=== PATIENT | female | born 1955 | race Caucasian/White ===

== ENCOUNTER 2021-05-02 16:41 | Emergency (ER) | payer MEDICARE ==
--- NOTE | 2021-05-02 17:01 | ERPHSYRPT ---
- History of Present Illness Time Seen by Provider: 05/02/21 16:45 Source: patient Exam Limitations: no limitations Patient Subjective Stated Complaint: PT states "For the past three days I have had a low grade fever in the upper 99s and weak with a slight cough." Triage Nursing Assessment: Pt presented alert and oriented X 3, skin wpd Pt ambulates with an upright steady gait, able to speak in clear full sentences pt in no apaprent respiratory distress. Physician History: 65 years old female with multiple medical problems presented in the ER with chief complaint of generalized weakness fatigue and tiredness for the last 3 days. She reports having nasal/sinus congestion with gradually having sore throat and now having productive cough of yellow-green sputum. No abdominal pain nausea vomiting or diarrhea reported. Unvaccinated against COVID-19. Denies any difficulty breathing. No chest pain or palpitations. Timing/Duration: day(s) (3), gradual onset, worse Cough Quality/Degree: moderate, productive cough, sputum Possible Cause: unknown cause Modifying Factors: Worsens With: coughing Associated Symptoms: chills, cough, dizziness, muscle aches, nasal congestion, nasal drainage, sinus infection, sore throat, wheezing, No shortness of breath Allergies/Adverse Reactions: No Known Drug Allergies Allergy (Unverified 09/23/20 19:41) Home Medications: Atorvastatin Calcium [Lipitor] 40 mg PO DAILY 05/02/21 [History] Furosemide 40 mg [Lasix 40 MG] 40 mg PO DAILY 05/02/21 [History] Glimepiride [Amaryl] 4 mg PO DAILY 05/02/21 [History] Isosorbide Mononitrate 60 mg [Imdur 60MG] 60 mg PO DAILY 05/02/21 [History] Levothyroxine Sodium [Euthyrox] 175 mcg PO DAILY 05/02/21 [History] Ropinirole HCl [Ropinirole ER] 4 mg PO DAILY 05/02/21 [History] Trazodone HCl 150 mg PO DAILY 05/02/21 [History] lisinopriL [Zestril] 30 mg PO DAILY 05/02/21 [History] Hx Tetanus, Diphtheria Vaccination/Date Given: Yes Hx Influenza Vaccination/Date Given: No Hx Pneumococcal Vaccination/Date Given: Yes Immunizations Up to Date: Yes Travel Risk - International Travel Have you traveled outside of the country in past 3 weeks: No - Coronavirus Screening Symptoms: Cough: New Onset Close contact with a COVID-19 positive Pt in past 14-21 Days: No - Vaccine Status Have you recieved a Covid-19 vaccination: No - Review of Systems Constitutional: Fatigue, Weakness Eyes: No Symptoms Ears, Nose, & Throat: No Symptoms Respiratory: Cough Cardiac: No Symptoms Abdominal/Gastrointestinal: No Symptoms Genitourinary Symptoms: No Symptoms Musculoskeletal: Myalgias Skin: No Symptoms Neurological: No Symptoms Psychological: No Symptoms Endocrine: No Symptoms Hematologic/Lymphatic: No Symptoms Immunological/Allergic: No Symptoms - Past Medical History Pertinent Past Medical History: Yes Neurological History: No Pertinent History ENT History: Cataracts Cardiac History: High Cholesterol, Hypertension Respiratory History: COPD Endocrine Medical History: Diabetes Type II, Hypothyroidism Musculoskeletal History: Arthritis GI Medical History: GERD, Hernia History: Renal Disease, Other Psycho-Social History: Depression Female Reproductive Disorders: No Pertinent History Other Medical History: kidney stones, stage III kidney disease - Past Surgical History Past Surgical History: Yes Neuro Surgical History: No Pertinent History Cardiac: Cardiac Catheterization Respiratory: No Pertinent History Gastrointestinal: No Pertinent History Genitourinary: No Pertinent History Musculoskeletal: No Pertinent History Female Surgical History: Hysterectomy - Social History Smoking Status: Former smoker Exposure to second hand smoke: No Drug Use: none Patient Lives Alone: No - Nursing Vital Signs Nursing Vital Signs: Initial Vital Signs Temperature 98.5 F 05/02/21 16:51 Pulse Rate 74 05/02/21 16:51 Respiratory Rate 20 05/02/21 16:51 Blood Pressure 134/73 05/02/21 16:51 O2 Sat by Pulse Oximetry 96 05/02/21 16:51 Pain Scale Pain Intensity 0 - Physical Exam General Appearance: no apparent distress, alert Eye Exam: PERRL/EOMI Ears, Nose, Throat Exam: moist mucous membranes, pharyngeal erythema Neck Exam: normal inspection, supple, full range of motion Respiratory Exam: wheezing Cardiovascular Exam: regular rate/rhythm, normal heart sounds Gastrointestinal/Abdomen Exam: soft, normal bowel sounds Back Exam: normal inspection, normal range of motion Extremity Exam: normal inspection, normal range of motion, pelvis stable Neurologic Exam: alert, oriented x 3, cooperative Skin Exam: normal color SpO2 Interpretation: normal SpO2: 96 O2 Delivery: Room Air Ordered Tests: Active Orders 24 hr Category Date Time Status Telephone Messenger STAT Care 05/02/21 16:57 Active EKG-ER Only STAT Care 05/02/21 16:56 Active IV Insertion STAT Care 05/02/21 16:56 Active CHEST 1 VIEW (PORTABLE) Stat Exams 05/02/21 17:06 Taken BLOOD CULTURE Stat Lab 05/02/21 17:30 Received CBC W DIFF Stat Lab 05/02/21 17:35 Completed CMP Stat Lab 05/02/21 17:35 Completed Lactic Acid Stat Lab 05/02/21 17:18 Completed MAGNESIUM Stat Lab 05/02/21 17:35 Completed NT PRO BNP Stat Lab 05/02/21 17:35 Completed TROPONIN Q3H Lab 05/02/21 17:35 Completed TROPONIN Q3H Lab 05/02/21 20:00 Ordered TROPONIN Q3H Lab 05/02/21 23:00 Ordered TROPONIN Q3H Lab 05/03/21 02:00 Ordered TROPONIN Q3H Lab 05/03/21 05:00 Ordered UA W/RFX UR CULTURE Stat Lab 05/02/21 17:35 Completed Medication Summary Discontinued Medications Generic Name Dose Route Start Last Admin Trade Name Freq PRN Reason Stop Dose Admin Albuterol/Ipratropium 3 ml 05/02/21 19:10 Ipratropium/Albuterol Sulfate 3 Ml Ampul.Neb IH 05/02/21 19:11 STAT ONE Doxycycline Hyclate 100 mg 05/02/21 19:09 Doxycycline Hyclate 100 Mg Tablet PO 05/02/21 19:10 STAT ONE Lab/Rad Data: Laboratory Result Diagrams 05/02/21 17:35 05/02/21 17:35 Laboratory Results 05/02/21 05/02/21 05/02/21 Range/Units 17:35 17:35 17:35 WBC (4.0-10.5) K/mm3 RBC (4.1-5.4) M/mm3 Hgb (12.0-16.0) gm/dl Hct (35-47) % MCV (78-100) fl MCH (26-32) pg MCHC (32-36) g/dl RDW (11.5-14.0) % Plt Count (150-450) K/mm3 MPV (7.5-11.0) fl Gran % (36.0-66.0) % Eos # (Auto) (0-0.5) Absolute Lymphs (auto) (1.0-4.6) Absolute Monos (auto) (0.0-1.3) Lymphocytes % (24.0-44.0) % Monocytes % (0.0-12.0) % Eosinophils % (0.00-5.0) % Basophils % (0.0-0.4) % Absolute Granulocytes (1.4-6.9) Basophils # (0-0.4) Sodium 139 (137-145) mmol/L Potassium 4.0 (3.5-5.1) mmol/L Chloride 103 (98-107) mmol/L Carbon Dioxide 28 (22-30) mmol/L Anion Gap 13.0 (5-15) MEQ/L BUN 21 H (7-17) mg/dL Creatinine 1.39 H (0.52-1.04) mg/dL Estimated GFR 40.2 ML/MIN Glucose 176 H (74-106) mg/dL Lactic Acid (0.4-2.0) Calcium 9.2 (8.4-10.2) mg/dL Magnesium 1.9 (1.6-2.3) mg/dL Total Bilirubin 0.50 (0.2-1.3) mg/dL AST 23 (14-36) U/L ALT 22 (0-35) U/L Alkaline Phosphatase 108 (38-126) U/L Troponin I < 0.012 (0.000-0.034) ng/mL NT-Pro-B Natriuret Pep 475 (0-900) pg/mL Serum Total Protein 6.6 (6.3-8.2) g/dL Albumin 3.7 (3.5-5.0) g/dL Urine Color YELLOW (YELLOW) Urine Appearance CLEAR (CLEAR) Urine pH 5.0 (5-6) Ur Specific [place] 1.010 (1.005-1.025) Urine Protein NEGATIVE (Negative) Urine Ketones NEGATIVE (NEGATIVE) Urine Blood NEGATIVE (0-5) Ang/ul Urine Nitrite NEGATIVE (NEGATIVE) Urine Bilirubin NEGATIVE (NEGATIVE) Urine Urobilinogen NEGATIVE (0-1) mg/dL Ur Leukocyte Esterase NEGATIVE (NEGATIVE) Urine WBC (Auto) NONE (0-5) /HPF Urine RBC (Auto) NONE (0-2) /HPF U Hyaline Cast (Auto) 3-5 (0-2) /LPF U Epithel Cells (Auto) NONE (FEW) /HPF Urine Bacteria (Auto) NONE (NEGATIVE) /HPF Urine Mucus (Auto) SLIGHT (NEGATIVE) /HPF Urine Culture Reflexed NO (NO) Urine Glucose NEGATIVE (NEGATIVE) mg/dL 05/02/21 05/02/21 Range/Units 17:35 17:18 WBC 8.3 (4.0-10.5) K/mm3 RBC 4.32 (4.1-5.4) M/mm3 Hgb 12.3 (12.0-16.0) gm/dl Hct 38.1 (35-47) % MCV 88.2 (78-100) fl MCH 28.5 (26-32) pg MCHC 32.3 (32-36) g/dl RDW 13.4 (11.5-14.0) % Plt Count 261 (150-450) K/mm3 MPV 9.8 (7.5-11.0) fl Gran % 47.9 (36.0-66.0) % Eos # (Auto) 0.54 H (0-0.5) Absolute Lymphs (auto) 3.02 (1.0-4.6) Absolute Monos (auto) 0.73 (0.0-1.3) Lymphocytes % 36.4 (24.0-44.0) % Monocytes % 8.8 (0.0-12.0) % Eosinophils % 6.5 H (0.00-5.0) % Basophils % 0.4 (0.0-0.4) % Absolute Granulocytes 3.98 (1.4-6.9) Basophils # 0.03 (0-0.4) Sodium (137-145) mmol/L Potassium (3.5-5.1) mmol/L Chloride (98-107) mmol/L Carbon Dioxide (22-30) mmol/L Anion Gap (5-15) MEQ/L BUN (7-17) mg/dL Creatinine (0.52-1.04) mg/dL Estimated GFR ML/MIN Glucose (74-106) mg/dL Lactic Acid 1.3 (0.4-2.0) Calcium (8.4-10.2) mg/dL Magnesium (1.6-2.3) mg/dL Total Bilirubin (0.2-1.3) mg/dL AST (14-36) U/L ALT (0-35) U/L Alkaline Phosphatase (38-126) U/L Troponin I (0.000-0.034) ng/mL NT-Pro-B Natriuret Pep (0-900) pg/mL Serum Total Protein (6.3-8.2) g/dL Albumin (3.5-5.0) g/dL Urine Color (YELLOW) Urine Appearance (CLEAR) Urine pH (5-6) Ur Specific [place] (1.005-1.025) Urine Protein (Negative) Urine Ketones (NEGATIVE) Urine Blood (0-5) Ang/ul Urine Nitrite (NEGATIVE) Urine Bilirubin (NEGATIVE) Urine Urobilinogen (0-1) mg/dL Ur Leukocyte Esterase (NEGATIVE) Urine WBC (Auto) (0-5) /HPF Urine RBC (Auto) (0-2) /HPF U Hyaline Cast (Auto) (0-2) /LPF U Epithel Cells (Auto) (FEW) /HPF Urine Bacteria (Auto) (NEGATIVE) /HPF Urine Mucus (Auto) (NEGATIVE) /HPF Urine Culture Reflexed (NO) Urine Glucose (NEGATIVE) mg/dL - Progress Progress: improved Air Movement: good Progress Note: 05/02/21 19:15 65-year-old is evaluated for generalized weakness fatigue and tiredness and flulike symptoms. Wrist x-ray showed questionable infiltrative process. She is maintaining oxygen saturation at room air around 97%. Not in any distress. Given breathing treatment and lab work grossly unremarkable. Will obtain outpatient Covid test as well. She is started on doxycycline. Do not think she needs to be admitted and is stable for discharge with outpatient follow-up. Discussed signs symptoms of worsening needing return to ER which she seems understanding. 05/02/21 19:32 Blood Culture(s) Obtained: No Antibiotics given: Yes Counseled pt/family regarding: lab results, diagnosis, need for follow-up, rad results - Departure Departure Disposition: Home Clinical Impression: General weakness, URI with cough and congestion Condition: Stable Critical Care Time: No Referrals: JOYCE LARSEN [Primary Care Provider] - Follow up/PCP as directed (In 2 days evaluation) Instructions: Generalized Weakness (DC), Acute Bronchitis, Adult (DC) Additional Instructions: Keep yourself well-hydrated. Take Tylenol as needed. Use inhaler as needed. Follow-up with primary care for reevaluation. Return to ER for worsening generalized weakness fatigue, cough, fever chills etc. Prescriptions: Albuterol 8 gm Mdi Hfa [Ventolin Hfa MDI] 8 gm IH Q4H #1 inh Doxycycline Hyclate 100 mg [Vibramycin 100 MG] 100 mg PO BID #14 tab
[2021-05-02 17:39] LABS: Absolute Neutrophil Ct (ANC) 3.98 (1.4-6.9); BASOPHIL % 0.4 % (0.0-0.4); Basophil (Absolute #) 0.03 (0-0.4); Eosinophil % 6.5 % (0.00-5.0); Eosinophil (Absolute #) 0.54 (0-0.5); Hematocrit 38.1 % (35-47); Hemoglobin 12.3 gm/dl (12.0-16.0); Lymphocyte (Absolute #) 3.02 (1.0-4.6); Lymphocytes % 36.4 % (24.0-44.0); Mean Cell Volume 88.2 fl (78-100); Mean Corpuscular Hemoglobin 28.5 pg (26-32); Mean Corpuscular Hgb Concent. 32.3 g/dl (32-36); Mean Platelet Volume 9.8 fl (7.5-11.0); Monocyte (Absolute #) 0.73 (0.0-1.3); Monocytes % 8.8 % (0.0-12.0); Neutrophil % 47.9 % (36.0-66.0); Platelet Count 261 K/mm3 (150-450); Red Blood Count 4.32 M/mm3 (4.1-5.4); Red Cell Distribution Width 13.4 % (11.5-14.0); White Blood Count 8.3 K/mm3 (4.0-10.5)
[2021-05-02 17:48] LABS: Appearance CLEAR (CLEAR); Bilirubin NEGATIVE (NEGATIVE); Blood NEGATIVE Ery/ul (0-5); Glucose NEGATIVE (NEGATIVE); Ketones NEGATIVE (NEGATIVE); Leukocyte Esterase NEGATIVE (NEGATIVE); Mucus SLIGHT /HPF (NEGATIVE); Nitrite NEGATIVE (NEGATIVE); Protein,Urine Dip NEGATIVE (Negative); Urobilinogen NEGATIVE mg/dL (0-1)
[2021-05-02 18:02] LABS: ALBUMIN 3.7 g/dL (3.5-5.0); BILIRUBIN,TOTAL 0.5 mg/dL (0.2-1.3); Calcium 9.2 mg/dL (8.4-10.2); Creatinine 1 1.39 mg/dL (0.52-1.04); EST GLOMERULAR FILTRATION RATE 40.2 ML/MIN; MAGNESIUM 1.9 mg/dL (1.6-2.3); Total Protein 6.6 g/dL (6.3-8.2)
[2021-05-02] MEDS ORDERED: Vibramycin 100 MG PO ONE (19:09)
[2021-05-02] MEDS ORDERED: DUONEB 0.5-3 MG/3 ml Neb IH ONE ×2 (19:10→20:03)
[2021-05-02] MEDS ORDERED: Vibramycin 100 MG ONE (20:10)
[2021-05-02 20:18] VITALS: BP 127/67; PULSE 63; O2SAT 97
--- NOTE | 2021-05-02 22:58 | XRAY ---
Indication: Fever and cough. Suspect Covid 19. Comparison: None Portable chest demonstrates subtle bibasilar infiltrates versus atelectasis. Remaining heart and lungs unremarkable. Bony thorax intact with mild osteopenia and degenerative changes.
== END 2021-05-02 20:16 | disposition home or self-care (01) ==
LOC: ED 16:41
DX: J06.9 Acute upper respiratory infection, unspecified (principal); R53.1 Weakness; R05.9 Cough, unspecified; R09.81 Nasal congestion; J02.9 Acute pharyngitis, unspecified; E78.5 Hyperlipidemia, unspecified; I12.9 Hypertensive chronic kidney disease with stage 1 through stage 4 chronic kidney disease, or unspecified chronic kidney disease; E11.22 Type 2 diabetes mellitus with diabetic chronic kidney disease; N18.30 Chronic kidney disease, stage 3 unspecified
CPT/HCPCS: 36000; 36415; 71045; 80053; 81001; 83605; 83735; 83880; 84484; 85025; 87040; 93005; 93041; 99284; U0003; A9270-GY

== ENCOUNTER 2021-05-30 14:50 | Emergency (ER) | payer MEDICARE ==
[2021-05-30 15:36] LABS: Hematocrit 39.3 % (35-47); Hemoglobin 12.8 gm/dl (12.0-16.0); Mean Cell Volume 87.9 fl (78-100); Mean Corpuscular Hemoglobin 28.6 pg (26-32); Mean Corpuscular Hgb Concent. 32.6 g/dl (32-36); Platelet Count 280 K/mm3 (150-450); Red Blood Count 4.47 M/mm3 (4.1-5.4); Red Cell Distribution Width 13.8 % (11.5-14.0); White Blood Count 13.4 K/mm3 (4.0-10.5)
[2021-05-30 15:37] LABS: Appearance CLEAR (CLEAR); Bilirubin NEGATIVE (NEGATIVE); Blood SMALL Ery/ul (0-5); Glucose NEGATIVE (NEGATIVE); Ketones NEGATIVE (NEGATIVE); Leukocyte Esterase NEGATIVE (NEGATIVE); Mucus SLIGHT /HPF (NEGATIVE); Nitrite NEGATIVE (NEGATIVE); Protein,Urine Dip 100 (Negative); RBC 26-50 /HPF (0-2); Specific Gravity 1.015 (1.005-1.025); Urobilinogen 2 mg/dL (0-1)
[2021-05-30 15:39] LABS: ALBUMIN 3.9 g/dL (3.5-5.0); BILIRUBIN,TOTAL 0.8 mg/dL (0.2-1.3); Calcium 9.7 mg/dL (8.4-10.2); Creatinine 1 1.81 mg/dL (0.52-1.04); EST GLOMERULAR FILTRATION RATE 29.6 ML/MIN
[2021-05-30] MEDS ORDERED: Zofran 4 MG/2 ML VIAL IV ONE (15:53)
[2021-05-30] MEDS ORDERED: Sodium Chloride 0.9% 500 ML 500 ML IV ONE ×2 (15:53→16:16)
[2021-05-30] MEDS ORDERED: MORPHINE SULFATE 4 MG INJ IV ONE (15:53)
[2021-05-30] MEDS ORDERED: MORPHINE SULFATE 4 MG INJ ONE (16:15)
[2021-05-30] MEDS ORDERED: Zofran 4 MG/2 ML VIAL ONE (16:15)
[2021-05-30 16:21] LABS: Eosinophil 3 % (0.00-3.0); Lymphocytes 24 % (24-44); Monocyte 7 % (0.0-12.0); Neutrophils 66 % (36.0-66.0); Total Cells Counted 100
[2021-05-30 16:22] LABS: ANISOCYTOSIS 1+; Platelet Estimate NORMAL (NORMAL); Poikilocytosis 1+; Polychromasia 1+
[2021-05-30] MEDS ORDERED: Flomax 0.4 MG PO STA (17:11)
[2021-05-30] MEDS ORDERED: Flomax 0.4 MG ONE (17:15)
[2021-05-30] MEDS ORDERED: ROCEPHIN 1 Gm-D5w 50 ml Bag** 1 G/50 ML IVPB IV STA (17:40)
--- NOTE | 2021-05-30 17:47 | ERPHSYRPT ---
- History of Present Illness Time Seen by Provider: 05/30/21 15:01 Historian: patient Exam Limitations: no limitations Patient Subjective Stated Complaint: pt reports approx 0900 pt starting having lower back and groin pain, pt reports dx of bronchitis 05/02/21 and states she has never gotten over it or quit coughing. pt is concerned she may have injured herself from coughing. pt denies any trauma or accident. Triage Nursing Assessment: pt is aox3, pupils perrl, afebrile, resps easy and non labored, cap refill < 3 seconds, radial pulses strong and equal, pt skin pink warm dry. skin is intact. pt sensation, ROM intact, ambulatory with slow [facility] joseph[facility] gait. Physician History: 65-year-old female presented to the ER with chief complaint of suprapubic/right groin area pain with some radiation to the back since morning, moderate intensity, sharp nature, aggravated with movement/ambulation without associated urinary symptoms. Denies any upper abdominal/flank pain. Denies any hematuria. Reports mild associated nausea but no vomiting. Has chronic cough bronchitis which she has been dealing for almost a month without any difficulty breathing. Patient thinks she might have coughed hard and pulled muscles in her back. No fever or chills reported. No history of kidney stones. Timing/Duration: today, constant, sudden, worse Activities at Onset: rest Quality: sharpness Abdominal Pain Onset Location: suprapubic Pain Radiation: groin Severity of Pain-Max: moderate Severity of Pain-Current: moderate Modifying Factors: Worsens With: movement, palpation Associated Symptoms: nausea Previous symptoms: no prior history Allergies/Adverse Reactions: No Known Drug Allergies Allergy (Verified 05/30/21 15:02) Home Medications: Atorvastatin Calcium [Lipitor] 40 mg PO DAILY 05/02/21 [History] Furosemide 40 mg [Lasix 40 MG] 40 mg PO DAILY 05/02/21 [History] Glimepiride [Amaryl] 4 mg PO DAILY 05/02/21 [History] Isosorbide Mononitrate 60 mg [Imdur 60MG] 60 mg PO DAILY 05/02/21 [History] Levothyroxine Sodium [Euthyrox] 175 mcg PO DAILY 05/02/21 [History] Ropinirole HCl [Ropinirole ER] 4 mg PO DAILY 05/02/21 [History] Trazodone HCl 150 mg PO DAILY 05/02/21 [History] lisinopriL [Zestril] 30 mg PO DAILY 05/02/21 [History] Hx Tetanus, Diphtheria Vaccination/Date Given: Yes Hx Influenza Vaccination/Date Given: Yes Hx Pneumococcal Vaccination/Date Given: Yes Immunizations Up to Date: Yes Travel Risk - International Travel Have you traveled outside of the country in past 3 weeks: No - Coronavirus Screening Are you exhibiting any of the following symptoms?: No Close contact with a COVID-19 positive Pt in past 14-21 Days: No - Vaccine Status Have you recieved a Covid-19 vaccination: No - Review of Systems Constitutional: No Symptoms Eyes: No Symptoms Ears, Nose, & Throat: No Symptoms Respiratory: No Symptoms Cardiac: No Symptoms Abdominal/Gastrointestinal: Abdominal Pain, Nausea Genitourinary Symptoms: No Symptoms Musculoskeletal: Back Pain Skin: No Symptoms Neurological: No Symptoms Psychological: No Symptoms Endocrine: No Symptoms Hematologic/Lymphatic: No Symptoms - Past Medical History Pertinent Past Medical History: Yes Neurological History: No Pertinent History ENT History: Cataracts Cardiac History: High Cholesterol, Hypertension Respiratory History: COPD Endocrine Medical History: Diabetes Type II, Hypothyroidism Musculoskeletal History: Arthritis GI Medical History: GERD, Hernia History: Renal Disease, Other Psycho-Social History: Depression Female Reproductive Disorders: No Pertinent History Other Medical History: kidney stones, stage III kidney disease - Past Surgical History Past Surgical History: Yes Neuro Surgical History: No Pertinent History Cardiac: Cardiac Catheterization Respiratory: No Pertinent History Gastrointestinal: No Pertinent History Genitourinary: No Pertinent History Musculoskeletal: No Pertinent History Female Surgical History: Hysterectomy - Social History Smoking Status: Former smoker Exposure to second hand smoke: No Drug Use: none Patient Lives Alone: No - Female History Hx Now: No - Nursing Vital Signs Nursing Vital Signs: Initial Vital Signs Temperature 97.5 F 05/30/21 14:54 Pulse Rate 77 05/30/21 14:54 Respiratory Rate 20 05/30/21 14:54 Blood Pressure 140/77 05/30/21 14:54 O2 Sat by Pulse Oximetry 97 05/30/21 14:54 Pain Scale Pain Intensity 7 - Physical Exam General Appearance: no apparent distress, alert Eye Exam: PERRL/EOMI Ears, Nose, Throat Exam: normal ENT inspection, pharynx normal Neck Exam: normal inspection, supple, full range of motion Respiratory Exam: normal breath sounds, lungs clear Cardiovascular Exam: regular rate/rhythm, normal heart sounds Gastrointestinal/Abdomen Exam: soft, normal bowel sounds, tenderness (Suprapubic area. No right lower quadrant tenderness.), No guarding Back Exam: normal inspection, normal range of motion, No CVA tenderness Extremity Exam: normal inspection, normal range of motion Neurologic Exam: alert, oriented x 3, cooperative Skin Exam: normal color SpO2 Interpretation: normal SpO2: 97 O2 Delivery: Room Air Ordered Tests: Active Orders 24 hr Category Date Time Status ABDOMEN AND PELVIS W/0 CONTRAS [CT] Stat Exams 05/30/21 16:09 Taken CBC W DIFF Stat Lab 05/30/21 15:20 Completed CMP Stat Lab 05/30/21 15:20 Completed LIPASE Stat Lab 05/30/21 15:20 Completed Manual Differential NC Stat Lab 05/30/21 15:20 Completed UA W/RFX UR CULTURE Stat Lab 05/30/21 15:23 Completed Medication Summary Discontinued Medications Generic Name Dose Route Start Last Admin Trade Name Harinder PRN Reason Stop Dose Admin Sodium Chloride 500 mls @ 500 mls/hr 05/30/21 15:53 05/30/21 16:18 Sodium Chloride 0.9% 500 Ml IV 05/30/21 16:52 500 mls/hr .Q1H ONE Administration Sodium Chloride Confirm 05/30/21 16:16 Sodium Chloride 0.9% 500 Ml Administered 05/30/21 16:17 Dose 500 mls @ ud IV .STK-MED ONE Morphine Sulfate 4 mg 05/30/21 15:53 05/30/21 16:20 Morphine Sulfate 4 Mg/Ml Injection IV 05/30/21 15:54 4 mg STAT ONE Administration Morphine Sulfate Confirm 05/30/21 16:15 Morphine Sulfate 4 Mg/Ml Injection Administered 05/30/21 16:16 Dose 4 mg .ROUTE .STK-MED ONE Ondansetron HCl 4 mg 05/30/21 15:53 05/30/21 16:20 Ondansetron Hcl 4 Mg/2 Ml Vial IV 05/30/21 15:54 4 mg STAT ONE Administration Ondansetron HCl Confirm 05/30/21 16:15 Ondansetron Hcl 4 Mg/2 Ml Vial Administered 05/30/21 16:16 Dose 4 mg .ROUTE .STK-MED ONE Tamsulosin HCl 0.4 mg 05/30/21 17:11 05/30/21 17:16 Tamsulosin Hcl 0.4 Mg Cap PO 05/30/21 17:12 0.4 mg ONCE STA Administration Tamsulosin HCl Confirm 05/30/21 17:15 Tamsulosin Hcl 0.4 Mg Cap Administered 05/30/21 17:16 Dose 0.4 mg .ROUTE .[facility] ONE Lab/Rad Data: Laboratory Result Diagrams 05/30/21 15:20 05/30/21 15:20 Laboratory Results 05/30/21 05/30/21 05/30/21 Range/Units 15:23 15:20 15:20 WBC 13.4 H (4.0-10.5) K/mm3 RBC 4.47 (4.1-5.4) M/mm3 Hgb 12.8 (12.0-16.0) gm/dl Hct 39.3 (35-47) % MCV 87.9 (78-100) fl MCH 28.6 (26-32) pg MCHC 32.6 (32-36) g/dl RDW 13.8 (11.5-14.0) % Plt Count 280 (150-450) K/mm3 MPV 10.0 (7.5-11.0) fl Segmented Neutrophils 66 (36.0-66.0) % Lymphocytes (Manual) 24 (24-44) % Monocytes (Manual) 7 (0.0-12.0) % Eosinophils (Manual) 3 (0.00-3.0) % Platelet Estimate NORMAL (NORMAL) RBC Morphology ABNORMAL Polychromasia 1+ Poikilocytosis 1+ Anisocytosis 1+ Sodium 138 (137-145) mmol/L Potassium 4.0 (3.5-5.1) mmol/L Chloride 100 (98-107) mmol/L Carbon Dioxide 27 (22-30) mmol/L Anion Gap 15.0 (5-15) MEQ/L BUN 28 H (7-17) mg/dL Creatinine 1.81 H (0.52-1.04) mg/dL Estimated GFR 29.6 ML/MIN Glucose 120 H (74-106) mg/dL Calcium 9.7 (8.4-10.2) mg/dL Total Bilirubin 0.80 (0.2-1.3) mg/dL AST 49 H (14-36) U/L ALT 42 H (0-35) U/L Alkaline Phosphatase 183 H (38-126) U/L Serum Total Protein 7.0 (6.3-8.2) g/dL Albumin 3.9 (3.5-5.0) g/dL Lipase 72 (23-300) U/L Urine Color YELLOW (YELLOW) Urine Appearance CLEAR (CLEAR) Urine pH 6.0 (5-6) Ur Specific [place] 1.015 (1.005-1.025) Urine Protein 100 (Negative) Urine Ketones NEGATIVE (NEGATIVE) Urine Blood SMALL (0-5) Ang/ul Urine Nitrite NEGATIVE (NEGATIVE) Urine Bilirubin NEGATIVE (NEGATIVE) Urine Urobilinogen 2 (0-1) mg/dL Ur Leukocyte Esterase NEGATIVE (NEGATIVE) Urine WBC (Auto) NONE (0-5) /HPF Urine RBC (Auto) 26-50 (0-2) /HPF U Epithel Cells (Auto) NONE (FEW) /HPF Urine Mucus (Auto) SLIGHT (NEGATIVE) /HPF Urine Culture Reflexed NO (NO) Urine Glucose NEGATIVE (NEGATIVE) mg/dL - Progress Progress: improved, re-examined Progress Note: 05/30/21 17:46 She is given fluid bolus along with symptomatic treatment for pain, on reevaluation her pain is almost completely resolved. She has a white count of 13, chemistry profile showed mild worsening of chronic kidney disease. No UTI. CT showed 3 mm right UVJ stone with hydroureteronephrosis. She is given Flomax. Size of stone is small enough to be passed on its own. I will continue with Flomax, pain medication and will give prophylactic antibiotics. Recommended outpatient urology follow-up. Discussed signs symptoms of worsening needing return to ER which she seems understanding. Counseled pt/family regarding: lab results, diagnosis, need for follow-up, rad results - Departure Departure Disposition: Home Clinical Impression: Ureterolithiasis Condition: Stable Critical Care Time: No Referrals: JOYCE LARSEN [Primary Care Provider] - Follow up/PCP as directed (In 2 days for reevaluation) KEISHA PORTILLO [COURTESY STAFF] - Follow up/PCP as directed (In 2 days for reev aluation) Instructions: Kidney Stones (DC) Additional Instructions: Take pain medications as needed. Drink plenty of fluids. Follow-up with urolog y for reevaluation. Return to ER for worsening pain, intractable vomiting or if develop fever chills etc. Prescriptions: Hydrocodone/Acetaminophen [Hydrocodone-Acetamin 5-325 mg] 1 tab PO Q6HPRN PRN 3 Days #12 tablet MDD 4 PRN Reason: Pain Tamsulosin HCl 0.4 mg [Flomax 0.4 MG] 0.4 mg PO DAILY #30 cap Cefpodoxime Proxetil 200 mg [Vantin 200 mg] 200 mg PO BID 7 Days #14 tablet
[2021-05-30] MEDS ORDERED: ROCEPHIN 1 Gm-D5w 50 ml Bag** 1 G/50 ML IVPB IV ONE (17:49)
[2021-05-30] MEDS ORDERED: NORCO 5/325 MG PO ONE (17:51)
[2021-05-30] MEDS ORDERED: NORCO 5/325 MG ONE (18:03)
[2021-05-30 18:08] VITALS: BP 131/72; PULSE 65; O2SAT 95
--- NOTE | 2021-05-30 19:00 | XRAY ---
Indication: Lower abdomen/pelvic pain. History stones. Multiple contiguous axial images obtained through the abdomen and pelvis without contrast using renal stone protocol. Comparison: September 23, 2020 Lung bases demonstrates minimal fibrosis/scarring. There is now partially visualized right perihilar opacity measure 1.4 x 2.0 cm better evaluated with CT chest exam. Heart not enlarged. New small hiatal hernia. Posterior urinary bladder demonstrates new 3-4 mm calculus adjacent to the right UVJ. Right ureter is slightly prominent along with mild hydronephrosis consistent with recent passage of said calculus. No calculus or evidence for objective rapidly on the left. Noncontrasted stomach and bowel loops appear nonobstructed. Appendix not seen. Minimal descending and sigmoid diverticulosis. There has been hysterectomy. No free fluid/air. Remaining liver, gallbladder, pancreas, spleen, adrenal glands, kidneys, ureters, and bladder are unremarkable for noncontrast exam. Mild scattered aortoiliac calcifications without AAA. Osseous structures intact with mild degenerative changes throughout the spine and both hips. Stable small fatty left inguinal hernia. Impression: 1. New 3-4 mm urinary bladder calculus adjacent to the right UVJ. Right hydronephrosis and hydroureter consistent with recent passage of said calculus. 2. New small hiatal hernia. 3. Partially visualized right perihilar opacity, possible adenopathy, better evaluated with CT chest exam. 4. Again colonic diverticulosis and chronic bony findings. Comment: Preliminary interpretation made by [facility] who does not report incidental right perihilar finding.
== END 2021-05-30 18:16 | disposition home or self-care (01) ==
LOC: ED 14:50
DX: N13.2 Hydronephrosis with renal and ureteral calculous obstruction (principal); Z87.442 Personal history of urinary calculi; R11.0 Nausea; I12.9 Hypertensive chronic kidney disease with stage 1 through stage 4 chronic kidney disease, or unspecified chronic kidney disease; N18.30 Chronic kidney disease, stage 3 unspecified; E78.5 Hyperlipidemia, unspecified; E11.9 Type 2 diabetes mellitus without complications; Z79.84 Long term (current) use of oral hypoglycemic drugs; Z79.891 Long term (current) use of opiate analgesic; Z79.899 Other long term (current) drug therapy
CPT/HCPCS: 36415; 74176; 80053; 81001; 83690; 85025; 96374; 96375; 99284; J0696; J2270; J2405; A9270-GY

== ENCOUNTER 2021-06-03 11:20 | Emergency (ER) | payer MEDICARE ==
[2021-06-03] MEDS ORDERED: Sodium Chloride 0.9% 1000 ML 1,000 ML IV STA (11:56)
[2021-06-03] MEDS ORDERED: Zofran 4 MG/2 ML VIAL IV ONE (11:56)
[2021-06-03] MEDS ORDERED: Hydromorphone 1 mg/ml Injection IV ONE (11:56)
[2021-06-03] MEDS ORDERED: TORAdol 30 mg Injection IV ONE (11:56)
--- NOTE | 2021-06-03 12:02 | ERPHSYRPT ---
- History of Present Illness Time Seen by Provider: 06/03/21 11:45 Historian: patient Exam Limitations: no limitations Patient Subjective Stated Complaint: PT TO ER WITH COMPLAINTS OF LEFT FLANK PAIN/LOWER ABDOMINAL PAIN. PT STATES SHE WAS HERE ABOUT 5 DAYS AGO DIAGNOSED W ITH A KIDNEY STONE. Triage Nursing Assessment: A&OX4. AMBULATORY. SKIN PWD. Physician History: This is an obese 65-year-old white female who presents with left flank pain. Patient was at this emergency department on 05/30/2021 for right flank pain and at that time a CAT scan of the abdomen pelvis showed a 3 mm right UVJ ureteral stone. She was instructed to follow-up with urologist (which she did not do) and given prescription for Flomax, Basehor and Vantin antibiotic. In the last 2 days she has noticed increasing and worsening left flank pain. She feels that this pain is actually worse than the right flank pain that she experienced on 05/30/2021. Patient has a history of hypothyroidism, [id number] diabetes, hypertension, stage III kidney disease and gastroesophageal reflux disease. She denies chest pain and she denies shortness of breath. Timing/Duration: day(s) (2) Activities at Onset: none Quality: sharpness, stabbing Abdominal Pain Onset Location: flank (Left) Severity of Pain-Max: moderate Severity of Pain-Current: moderate Modifying Factors: Improves With: nothing Associated Symptoms: No chest pain, No fever/chills, No nausea, No shortness of breath, No vomiting Previous symptoms: recently seen, recently treated Allergies/Adverse Reactions: No Known Drug Allergies Allergy (Verified 06/03/21 11:38) Home Medications: Atorvastatin Calcium [Lipitor] 40 mg PO DAILY 05/02/21 [History] Furosemide 40 mg [Lasix 40 MG] 40 mg PO DAILY 05/02/21 [History] Glimepiride [Amaryl] 4 mg PO DAILY 05/02/21 [History] Isosorbide Mononitrate 60 mg [Imdur 60MG] 60 mg PO DAILY 05/02/21 [History] Levothyroxine Sodium [Euthyrox] 175 mcg PO DAILY 05/02/21 [History] Ropinirole HCl [Ropinirole ER] 4 mg PO DAILY 05/02/21 [History] Trazodone HCl 150 mg PO DAILY 05/02/21 [History] lisinopriL [Zestril] 30 mg PO DAILY 05/02/21 [History] Hx Tetanus, Diphtheria Vaccination/Date Given: Yes Hx Influenza Vaccination/Date Given: Yes Hx Pneumococcal Vaccination/Date Given: Yes Travel Risk - International Travel Have you traveled outside of the country in past 3 weeks: No - Coronavirus Screening Are you exhibiting any of the following symptoms?: No Close contact with a COVID-19 positive Pt in past 14-21 Days: No - Vaccine Status Have you recieved a Covid-19 vaccination: No - Review of Systems Constitutional: No Symptoms Eyes: No Symptoms Ears, Nose, & Throat: No Symptoms Respiratory: No Symptoms Cardiac: No Symptoms Abdominal/Gastrointestinal: No Symptoms (Left) Genitourinary Symptoms: Flank Pain Musculoskeletal: No Symptoms Skin: No Symptoms Neurological: No Symptoms Psychological: No Symptoms Endocrine: No Symptoms Hematologic/Lymphatic: No Symptoms Immunological/Allergic: No Symptoms All Other Systems: Reviewed and Negative - Past Medical History Pertinent Past Medical History: Yes Neurological History: No Pertinent History ENT History: Cataracts Cardiac History: High Cholesterol, Hypertension Respiratory History: COPD Endocrine Medical History: Diabetes Type II, Hypothyroidism Musculoskeletal History: Arthritis GI Medical History: GERD, Hernia History: Renal Disease, Other Psycho-Social History: Depression Female Reproductive Disorders: No Pertinent History Other Medical History: kidney stones, stage III kidney disease - Past Surgical History Past Surgical History: Yes Neuro Surgical History: No Pertinent History Cardiac: Cardiac Catheterization Respiratory: No Pertinent History Gastrointestinal: No Pertinent History Genitourinary: No Pertinent History Musculoskeletal: No Pertinent History Female Surgical History: Hysterectomy - Social History Smoking Status: Former smoker Exposure to second hand smoke: No Drug Use: none Patient Lives Alone: No - Female History Hx Now: No - Nursing Vital Signs Nursing Vital Signs: Initial Vital Signs Temperature 99.1 F 06/03/21 11:32 Pulse Rate 101 H 06/03/21 11:32 Respiratory Rate 24 06/03/21 11:32 Blood Pressure 149/94 06/03/21 11:32 O2 Sat by Pulse Oximetry 98 06/03/21 11:32 Pain Scale Pain Intensity 2 - Physical Exam General Appearance: no apparent distress, alert, anxiety, obese Eye Exam: PERRL/EOMI, eyes nml inspection Ears, Nose, Throat Exam: normal ENT inspection, moist mucous membranes Neck Exam: normal inspection, non-tender, supple, full range of motion Respiratory Exam: normal breath sounds, lungs clear, airway intact, No chest tenderness, No respiratory distress Cardiovascular Exam: regular rate/rhythm, normal heart sounds, normal peripheral pulses Gastrointestinal/Abdomen Exam: soft, normal bowel sounds, No tenderness Pelvic Exam: not done Rectal Exam: not done Back Exam: normal inspection, normal range of motion, CVA tenderness (Left side), No vertebral tenderness Extremity Exam: normal inspection, normal range of motion, pelvis stable Neurologic Exam: alert, oriented x 3, cooperative, 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 as tested, normal mood/affect, nml cerebellar function, nml station & gait, sensation nml Skin Exam: normal color, warm, dry Lymphatic Exam: No adenopathy SpO2 Interpretation: normal SpO2: 98 O2 Delivery: Room Air - Course Nursing assessment & vital signs reviewed: Yes Ordered Tests: Active Orders 24 hr Category Date Time Status IV Insertion STAT Care 06/03/21 11:56 Active Oxygen-ED Only Nasal Cannula 2 lpm Care 06/03/21 12:39 Active ABDOMEN AND PELVIS W/0 CONTRAS [CT] Stat Exams 06/03/21 11:56 Completed AMYLASE Stat Lab 06/03/21 11:40 Received CBC W DIFF Stat Lab 06/03/21 11:40 Completed CMP Stat Lab 06/03/21 11:40 Received CULTURE,URINE Stat Lab 06/03/21 11:57 Received LIPASE Stat Lab 06/03/21 11:40 Received Lactic Acid Stat Lab 06/03/21 11:56 Completed Manual Differential NC Stat Lab 06/03/21 11:40 Completed UA W/RFX UR CULTURE Stat Lab 06/03/21 11:57 Completed Medication Summary Generic Name Dose Route Start Last Admin Trade Name Freq PRN Reason Stop Dose Admin Sodium Chloride 1,000 mls @ 999 mls/hr 06/03/21 11:56 06/03/21 12:06 Sodium Chloride 0.9% 1000 Ml IV 06/03/21 12:56 999 mls/hr .Q1H1M STA Administration Discontinued Medications Generic Name Dose Route Start Last Admin Trade Name Freq PRN Reason Stop Dose Admin Hydromorphone HCl 1 mg 06/03/21 11:56 06/03/21 12:07 Hydromorphone 1 Mg/1ml Inj 1 Mg/Ml Syringe IV 06/03/21 11:57 1 mg STAT ONE Administration Hydromorphone HCl Confirm 06/03/21 12:04 Hydromorphone 1 Mg/1ml Inj 1 Mg/Ml Syringe Administered 06/03/21 12:05 Dose 1 mg .ROUTE .STK-MED ONE Sodium Chloride Confirm 06/03/21 12:05 Sodium Chloride 0.9% 1000 Ml Administered 06/03/21 12:06 Dose 1,000 mls @ ud .ROUTE .STK-MED ONE Ketorolac Tromethamine 30 mg 06/03/21 11:56 06/03/21 12:06 Ketorolac Tromethamine 30 Mg/Ml Inj IV 06/03/21 11:57 30 mg STAT ONE Administration Ketorolac Tromethamine Confirm 06/03/21 12:04 Ketorolac Tromethamine 30 Mg/Ml Inj Administered 06/03/21 12:05 Dose 30 mg .ROUTE .STK-MED ONE Ondansetron HCl 4 mg 06/03/21 11:56 06/03/21 12:06 Ondansetron Hcl 4 Mg/2 Ml Vial IV 06/03/21 11:57 4 mg STAT ONE Administration Ondansetron HCl Confirm 06/03/21 12:04 Ondansetron Hcl 4 Mg/2 Ml Vial Administered 06/03/21 12:05 Dose 4 mg .ROUTE .STK-MED ONE Lab/Rad Data: Laboratory Result Diagrams 06/03/21 11:40 Laboratory Results 06/03/21 06/03/21 06/03/21 Range/Units 11:57 11:56 11:40 WBC 21.5 H (4.0-10.5) K/mm3 RBC 4.52 (4.1-5.4) M/mm3 Hgb 12.8 (12.0-16.0) gm/dl Hct 39.9 (35-47) % MCV 88.3 (78-100) fl MCH 28.3 (26-32) pg MCHC 32.1 (32-36) g/dl RDW 13.7 (11.5-14.0) % Plt Count 292 (150-450) K/mm3 MPV 10.3 (7.5-11.0) fl Lactic Acid 1.4 (0.4-2.0) Urine Color YELLOW (YELLOW) Urine Appearance CLEAR (CLEAR) Urine pH 6.0 (5-6) Ur Specific [address] 1.018 (1.005-1.025) Urine Protein 100 (Negative) Urine Ketones NEGATIVE (NEGATIVE) Urine Blood SMALL (0-5) Ang/ul Urine Nitrite NEGATIVE (NEGATIVE) Urine Bilirubin NEGATIVE (NEGATIVE) Urine Urobilinogen NEGATIVE (0-1) mg/dL Ur Leukocyte Esterase TRACE (NEGATIVE) Urine WBC (Auto) 6-10 (0-5) /HPF Urine RBC (Auto) 6-10 (0-2) /HPF U Epithel Cells (Auto) RARE (FEW) /HPF Urine Bacteria (Auto) NONE (NEGATIVE) /HPF Urine Culture Reflexed YES (NO) Urine Glucose NEGATIVE (NEGATIVE) mg/dL - Progress Progress: improved, pain not gone completely Progress Note: 06/03/21 12:50 CAT scan of the abdomen pelvis: The previous ureteral calculus on the right side has passed. There are no acute intra-abdominal or intrapelvic findings on this noncontrasted study. Counseled pt/family regarding: lab results, diagnosis, need for follow-up, rad results - Departure Departure Disposition: Home Clinical Impression: Left flank pain, UTI (urinary tract infection) Condition: Stable Critical Care Time: No Referrals: JOYCE LARSEN [Primary Care Provider] - Follow up/PCP as directed Additional Instructions: Stop your Vantin antibiotic. Take your Cipro antibiotic as prescribed. Follow- up with your primary care physician for further management. Prescriptions: Ciprofloxacin [Cipro 500 MG] 500 mg PO BID #14 tablet
[2021-06-03] MEDS ORDERED: Hydromorphone 1 mg/ml Injection ONE (12:04)
[2021-06-03] MEDS ORDERED: TORAdol 30 mg Injection ONE (12:04)
[2021-06-03] MEDS ORDERED: Zofran 4 MG/2 ML VIAL ONE (12:04)
[2021-06-03] MEDS ORDERED: Sodium Chloride 0.9% 1000 ML 1,000 ML ONE (12:05)
[2021-06-03 12:32] LABS: Hematocrit 39.9 % (35-47); Hemoglobin 12.8 gm/dl (12.0-16.0); Mean Cell Volume 88.3 fl (78-100); Mean Corpuscular Hemoglobin 28.3 pg (26-32); Mean Corpuscular Hgb Concent. 32.1 g/dl (32-36); Mean Platelet Volume 10.3 fl (7.5-11.0); Platelet Count 292 K/mm3 (150-450); Red Blood Count 4.52 M/mm3 (4.1-5.4); Red Cell Distribution Width 13.7 % (11.5-14.0); White Blood Count 21.5 K/mm3 (4.0-10.5)
--- NOTE | 2021-06-03 12:44 | XRAY ---
Indication: Left flank pain. History right kidney stones. Multiple contiguous axial images obtained through the abdomen and pelvis without contrast. Comparison: May 30, 2021. Lung bases again demonstrates fibrosis/scarring. Stable partially visualized 1.4 x 2.0 cm right hilar soft tissue opacity better evaluated with CT chest exam. Heart not enlarged. Stable small hiatal hernia. Noncontrasted stomach and bowel loops remain nonobstructed again with descending and sigmoid diverticulosis.. Appendix not seen. Again hysterectomy. No free fluid/air. Previous urinary bladder calculus has passed. Remaining liver, gallbladder, pancreas, spleen, adrenal glands, kidneys, ureters, and bladder are unremarkable for noncontrast exam. Stable mild aortoiliac calcifications without AAA. Impression: 1. Compared to CT 4 days ago, urinary bladder micro-calculus has passed. 2. Stable colonic diverticulosis, small hiatal hernia, and partially visualized right hilar soft tissue opacity.
[2021-06-03 12:45] LABS: Appearance CLEAR (CLEAR); Bilirubin NEGATIVE (NEGATIVE); Blood SMALL Ery/ul (0-5); Epithelial Cells RARE /HPF (FEW); Glucose NEGATIVE (NEGATIVE); Ketones NEGATIVE (NEGATIVE); Leukocyte Esterase TRACE (NEGATIVE); Nitrite NEGATIVE (NEGATIVE); Protein,Urine Dip 100 (Negative); Specific Gravity 1.018 (1.005-1.025); Urobilinogen NEGATIVE mg/dL (0-1)
[2021-06-03 12:48] LABS: ALBUMIN 3.8 g/dL (3.5-5.0); ANION GAP 11.6 MEQ/L (5-15); BILIRUBIN,TOTAL 0.6 mg/dL (0.2-1.3); Calcium 9.6 mg/dL (8.4-10.2); Creatinine 1 1.28 mg/dL (0.52-1.04); EST GLOMERULAR FILTRATION RATE 44.2 ML/MIN; Potassium 4.1 mmol/L (3.5-5.1); Total Protein 7.1 g/dL (6.3-8.2)
[2021-06-03 12:53] LABS: Lymphocytes 22 % (24-44); Monocyte 3 % (0.0-12.0); Neutrophils 75 % (36.0-66.0); Platelet Estimate NORMAL (NORMAL); Total Cells Counted 100
[2021-06-03] MEDS ORDERED: ROCEPHIN 1 Gm-D5w 50 ml Bag** 1 G/50 ML IVPB IV STA (12:53)
[2021-06-03] MEDS ORDERED: ROCEPHIN 1 Gm-D5w 50 ml Bag** 1 G/50 ML IVPB IV ONE (12:57)
[2021-06-03 13:07] VITALS: BP 103/71; PULSE 84; O2SAT 92
== END 2021-06-03 13:23 | disposition home or self-care (01) ==
LOC: ED 11:20
DX: R10.32 Left lower quadrant pain (principal); N39.0 Urinary tract infection, site not specified; E78.5 Hyperlipidemia, unspecified; I12.9 Hypertensive chronic kidney disease with stage 1 through stage 4 chronic kidney disease, or unspecified chronic kidney disease; N18.30 Chronic kidney disease, stage 3 unspecified; E11.9 Type 2 diabetes mellitus without complications; Z79.84 Long term (current) use of oral hypoglycemic drugs; E03.9 Hypothyroidism, unspecified; K21.9 Gastro-esophageal reflux disease without esophagitis; Z79.899 Other long term (current) drug therapy
CPT/HCPCS: 36000; 36415; 74176; 80053; 81001; 82150; 83605; 83690; 85025; 87086; 96374; 96375; 99284; J0696; J1170; J1885; J2405